=== PATIENT | female | born 2005 | race Caucasian/White ===

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

== ENCOUNTER 2025-02-04 07:13 | Emergency (ER) | payer MEDICAID, SELFPAY ==
[2025-02-04 07:15] VITALS: BP 143/89; PULSE 72; RESP 14; TEMP 35.9; O2SAT 100
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
[2025-02-04 07:20] VITALS: BP 143/89; PULSE 72; RESP 14; TEMP 35.9; O2SAT 100
[2025-02-04] MEDS: Droperidol 5 MG/2 ML VIAL IVP (07:45)
[2025-02-04] MEDS: Ketorolac 15 MG/ML VIAL IVP (07:45)
[2025-02-04 07:53] LABS: HCT 40.2 % (36.0-46.0); HGB 13.4 g/dL (11.2-15.7); MCH 27.2 pg (27.0-33.0); MCHC 33.3 % (32.0-36.0); MCV 82 fL (80-95); Platelet Count 187 10^3/uL (130-400); RBC 4.92 10^6/uL (3.93-5.22); RDW 13.9 % (11.7-14.6); RDW-SD 41.1 fL; WBC 9.91 10^3/uL (4.4-10.8)
[2025-02-04] MEDS: DEXTROSE 5%-0.9% SALINE 1,000 ML 1000 ML IV (07:58)
[2025-02-04 08:17] LABS: ALT 18 U/L (14-59); AST 14 U/L (15-37); Abs Immature Grans 0.00 10^3/uL (0.0-0.06); Albumin 4.4 g/dL (3.4-5.0); Alkaline Phosphatase 98 U/L (46-116); Anion Gap 11.9 mmol/L (3-11); BUN 8 mg/dL (7-18); Bilirubin, Total 0.4 mg/dL (0.2-1.0); CO2 24.1 mmol/L (21.0-32.0); Calcium 9.3 mg/dL (8.5-10.1); Chloride 104 mmol/L (98-107); Estimated GFR 132.52 (mL/min/1.73m2); Glucose 105 mg/dL (74-106); Immature Grans % 0.0 %; Lipase 28 U/L (<78); MPV 12.5 fL (8.0-11.0); Magnesium 2.0 mg/dL (1.8-2.4); Potassium 3.4 mmol/L (3.5-5.1); RBC Morphology Normal; Sodium 140 mmol/L (136-145); Total Protein 8.0 g/dL (6.4-8.2)
[2025-02-04 08:23] LABS: HCG Qual (Serum) Positive
[2025-02-04 08:41] VITALS: BP 105/82; PULSE 77; RESP 13; TEMP 36.7; O2SAT 100
[2025-02-04 08:41] LABS: Lab Add On Test DONE
[2025-02-04] MEDS: Ondansetron 4 MG/2 ML VIAL IVP (08:53)
[2025-02-04] MEDS: Potassium Chloride 20 MEQ TABCR 40 MEQ PO (08:53)
[2025-02-04 08:54] LABS: Glucose >=1000 mg/dL (Negative)
[2025-02-04 09:01] LABS: RBC Negative HPF (0-2); WBC Negative HPF (0-5)
[2025-02-04 09:15] LABS: HCG Quant, Pregnancy 3185 mIU/mL (1-3)
[2025-02-04 10:24] VITALS: BP 108/55; PULSE 64; RESP 16; O2SAT 98
--- NOTE | 2025-02-04 14:04 | NUR.NOTE ---
Accessed chart to send prior auth to PCP at [facility] Note:
== END 2025-02-04 10:27 | disposition home or self-care (01) ==
PROVIDERS: Emergency Provider Emergency Medicine; PCP Nurse Practitioner Family
DX: O21.8 Other vomiting complicating pregnancy (principal); O26.891 Other specified pregnancy related conditions, first trimester; E87.6 Hypokalemia; Z3A.01 Less than 8 weeks gestation of pregnancy
CPT/HCPCS: 36415; 80053; 83690; 96361; 96374; 96375; 99284; 81003; 81015; 83735; 84702; 84703; 85025; 87086; J1790; J1885; J2405; J7042

== ENCOUNTER 2025-03-02 16:18 | Outpatient (CLI) | payer MEDICAID, SELFPAY | END 2025-03-02 16:19 | disposition home or self-care (01) | LOC: LBO 16:18 | PROVIDERS: PCP Nurse Practitioner Family; Visit Provider Obstetrics & Gynecology | DX: Z34.91 Encounter for supervision of normal pregnancy, unspecified, first trimester (principal) | CPT/HCPCS: 36415; 86850; 86900; 86901 ==

== ENCOUNTER 2025-03-29 01:43 | Outpatient (CLI) | payer MEDICAID, SELFPAY ==
[2025-03-29 11:00] LABS: Abs Immature Grans 0.04 10^3/uL (0.0-0.06); HCT 40.3 % (36.0-46.0); HGB 13.6 g/dL (11.2-15.7); Immature Grans % 0.4 %; MCH 27.5 pg (27.0-33.0); MCHC 33.7 % (32.0-36.0); MCV 81 fL (80-95); MPV 12.0 fL (8.0-11.0); Platelet Count 196 10^3/uL (130-400); RBC 4.95 10^6/uL (3.93-5.22); RDW 13.2 % (11.7-14.6); RDW-SD 38.9 fL; WBC 10.47 10^3/uL (4.4-10.8)
[2025-03-29 11:50] LABS: ALT 13 U/L (14-59); AST 11 U/L (15-37); Albumin 4.1 g/dL (3.4-5.0); Alkaline Phosphatase 70 U/L (46-116); Anion Gap 14.0 mmol/L (3-11); BUN 10 mg/dL (7-18); Bilirubin, Total 0.5 mg/dL (0.2-1.0); CO2 23.0 mmol/L (21.0-32.0); Calcium 9.4 mg/dL (8.5-10.1); Chloride 100 mmol/L (98-107); Estimated GFR 132.52 (mL/min/1.73m2); Glucose 118 mg/dL (74-106); Potassium 3.9 mmol/L (3.5-5.1); Sodium 137 mmol/L (136-145); Total Protein 8.0 g/dL (6.4-8.2)
[2025-03-30 10:46] LABS: Rubella IgG Ab (UVM) Positive (See Note)
[2025-03-30 10:58] LABS: Hepatitis C Ab w Rflx HCV PCR Negative (Negative)
[2025-03-30 11:13] LABS: HIV-1/2 Ag & Ab Screen Negative (Negative)
[2025-03-30 15:01] LABS: Fentanyl Scr w/Rfx Confirm Negative ng/mL (<1)
[2025-04-01 13:02] LABS: Syphilis IgG w/Reflex Nonreactive (Nonreactive)
== END 2025-03-29 01:44 | disposition home or self-care (01) ==
LOC: LBO 01:43
PROVIDERS: PCP Nurse Practitioner Family; Visit Provider Advanced Practice Midwife
DX: Z34.91 Encounter for supervision of normal pregnancy, unspecified, first trimester (principal); F19.21 Other psychoactive substance dependence, in remission
CPT/HCPCS: 36415; 80053; 80307; 86787; 86803; 86850; 86900; 86901; 87340; 87389; 85025; 86762; 86780

== ENCOUNTER 2025-04-02 01:09 | Outpatient (CLI) | payer MEDICAID, SELFPAY ==
[2025-04-02 11:30] LABS: TSH (W/Ref FT4) 1.65 uIU/mL (0.52-4.13)
== END 2025-04-02 01:10 | disposition home or self-care (01) ==
LOC: LBO 01:09
PROVIDERS: PCP Nurse Practitioner Family; Visit Provider Advanced Practice Midwife
DX: Z34.91 Encounter for supervision of normal pregnancy, unspecified, first trimester (principal)
CPT/HCPCS: 36415; 81220; 81222; 84443

== ENCOUNTER 2025-04-02 10:12 | Outpatient (REF) | payer MEDICAID, SELFPAY ==
[2025-04-02 12:27] LABS: Cannabinoids THC Positive (Negative); METHADONE URINE SCREEN Negative (Negative)
[2025-04-05 10:50] LABS: Fentanyl Scr w/Rfx Confirm Negative ng/mL (<1)
[2025-04-05 11:55] LABS: Chlamydia Result Negative (Negative); GC Result Negative (Negative)
== END 2025-04-02 10:13 | disposition home or self-care (01) ==
LOC: LBN 10:12
PROVIDERS: PCP Nurse Practitioner Family; Visit Provider Advanced Practice Midwife
DX: F19.11 Other psychoactive substance abuse, in remission (principal); Z34.91 Encounter for supervision of normal pregnancy, unspecified, first trimester; F19.21 Other psychoactive substance dependence, in remission
CPT/HCPCS: 80307; 80348; 87491; 87591; 87086

== ENCOUNTER → 2025-05-26 01:20 | Outpatient (CLI) | payer MEDICAID, SELFPAY ==
--- NOTE | 2025-05-26 12:20 | DI.US_ITS ---
Exam(s) US OB 2-3 TRIMESTER EXAM: US OB 2-3 TRIMESTER CLINICAL HISTORY: anatomy,Z34.90. TECHNIQUE: Transabdominal obstetrical ultrasound performed. COMPARISON: US POCUS EXAM from 03/02/2025 FINDINGS: Number of fetuses: 1 position: CEPHALIC Placental location: ANTERIOR. No evidence of previa. BIOMETRIC DATA: BPD: 5.06cm mm, 21weeks 2days weeks HC: 18.73cm mm, 21weeks weeks AC: 15.68cm mm, 20weeks 6days weeks FL: 3.62cm mm, 21weeks 3days weeks Cisterna magna: 4.5mm mm Cerebellum: 2.12cm cm Lateral ventricle: 7 mm EFW: 401.31g grams, 60.1% % Composite Age: 21weeks 1day weeks PERLA: 10/05/2025 Heart Rate: 138bpm BPM Amniotic fluid: Amount of fluid is visually within normal limits. ANATOMICAL SURVEY: Four-chambered heart: Unremarkable. LVOT: Unremarkable. RVOT: Unremarkable. Left-sided stomach: Unremarkable. urinary bladder: Unremarkable. Bilateral kidneys: Unremarkable. Three-vessel cord: Unremarkable. Cord insertion: Unremarkable. Posterior fossa:Unremarkable. ventricles: Unremarkable. nose: Unremarkable. lips: Unremarkable. palate: Unremarkable. spine: Unremarkable. Two arms and two legs: Unremarkable. IMPRESSION: 1. Single live intrauterine gestation with composite age measuring 21+1 weeks. 2. Normal anatomic survey. DATA REPOSITORY:
== END ==
LOC: DI 01:20
PROVIDERS: PCP Nurse Practitioner Family; Visit Provider Advanced Practice Midwife
DX: Z34.92 Encounter for supervision of normal pregnancy, unspecified, second trimester (principal)
CPT/HCPCS: 76805